=== PATIENT | female | born 1990 | race African-American/Black ===

== ENCOUNTER 2018-01-22 08:11 | Emergency (ER) | payer OTHER ==
[~2018-01-22] VITALS: Ht 167.6 cm; Wt 80.7 kg
[~2018-01-22 08:11] MED LIST: CIPRO250 M1 PO; DOXYCYCLINE 10100 M1 PO; IBUPROFEN 200200 M1 PO; MACROBID 100 M100 M1 PO; PERCOCET 5-3251 EACH PO; TRINATE TABLET1 TAB PO
[2018-01-22 08:33] LABS: URINE BILIRUBIN NEGATIVE (Negative); URINE BLOOD NEGATIVE (Negative); URINE CLARITY CLEAR; URINE COLOR YELLOW; URINE GLUCOSE-RANDOM* NEGATIVE (Negative); URINE KETONES NEGATIVE (Negative); URINE LEUKOCYTES-REFLEX NEGATIVE (Negative); URINE NITRITE-REFLEX NEGATIVE (Negative); URINE PROTEIN (DIPSTICK) NEGATIVE (Negative); URINE SPECIFIC GRAVITY 1.025 (1.005-1.035); URINE UROBILINOGEN 0.2 E.U./dl (0.2-1.0)
[2018-01-22 08:45] LABS: ABSOLUTE NEUTROPHILS 2.9 thou/uL (1.4-8.2); BASOPHILS 0.6 % (0.0-2.0); HEMATOCRIT 42.9 % (37.0-47.0); HEMOGLOBIN 14.2 gm/dL (12.0-15.0); LYMPHOCYTES 34.9 % (24.0-44.0); MCH 26.3 pg (26.0-34.0); MCHC 33.1 g/dL (28.0-37.0); MCV 79.5 fL (80.0-100.0); MONOCYTES 3.8 % (1.0-8.0); PLATELET COUNT 155 thou/uL (150-400); POLYS 59.7 % (36.0-66.0); RDW 13.6 % (10.5-14.5); WBC 4.8 thou/uL (4.0-11.0)
[2018-01-22 08:52] LABS: CALCIUM 9.2 mg/dL (8.5-10.1); POTASSIUM 3.7 mmol/L (3.5-5.1)
[2018-01-22] MEDS ORDERED: BENTYL 10 MG CA10 M1 PO (09:22)
== END 2018-01-22 09:40 | disposition home or self-care (01) ==
LOC: ER 08:11
PROVIDERS: Student in an Organized Health Care Education/Training Program
DX: E73.9 Lactose intolerance, unspecified (principal); R10.30 Lower abdominal pain, unspecified; R19.7 Diarrhea, unspecified; R11.0 Nausea

== ENCOUNTER 2018-06-10 19:10 | Emergency (ER) | payer OTHER ==
[~2018-06-10] VITALS: Ht 167.6 cm; Wt 80.7 kg
[~2018-06-10 19:10] MED LIST changes: +BENTYL 10 MG CA10 M1 PO
[2018-06-10 19:58] LABS: ABSOLUTE NEUTROPHILS 3.1 thou/uL (1.4-8.2); BASOPHILS 0.8 % (0.0-2.0); EOSINOPHILS 1.4 % (0.0-3.0); HEMATOCRIT 38.9 % (37.0-47.0); HEMOGLOBIN 12.7 gm/dL (12.0-15.0); LYMPHOCYTES 36.9 % (24.0-44.0); MCH 25.8 pg (26.0-34.0); MCHC 32.6 g/dL (28.0-37.0); MCV 78.9 fL (80.0-100.0); MONOCYTES 5.8 % (1.0-8.0); PLATELET COUNT 152 thou/uL (150-400); POLYS 55.1 % (36.0-66.0); RBC 4.92 mil/uL (4.20-5.00); RDW 14.4 % (10.5-14.5); WBC 5.5 thou/uL (4.0-11.0)
[2018-06-10 20:06] LABS: CALCIUM 8.1 mg/dL (8.5-10.1); CREATININE 0.9 mg/dL (0.6-1.0); POTASSIUM 3.8 mmol/L (3.5-5.1)
[2018-06-10 20:12] LABS: ALBUMIN 3.7 g/dL (3.4-5.0); TOTAL BILIRUBIN 0.4 mg/dL (<0.1-1.0); TOTAL PROTEIN 7.8 g/dL (6.4-8.2)
[2018-06-10 20:21] LABS: URINE BILIRUBIN NEGATIVE (Negative); URINE BLOOD NEGATIVE (Negative); URINE CLARITY CLEAR; URINE COLOR YELLOW; URINE GLUCOSE-RANDOM* NEGATIVE (Negative); URINE KETONES NEGATIVE (Negative); URINE LEUKOCYTES-REFLEX TRACE (Negative); URINE NITRITE-REFLEX NEGATIVE (Negative); URINE PROTEIN (DIPSTICK) NEGATIVE (Negative); URINE SPECIFIC GRAVITY 1.025 (1.005-1.035)
[2018-06-10] MEDS ORDERED: IBUPROFEN 600600 M1 PO (21:43)
[2018-06-10] MEDS ORDERED: FLAGYL500 M1 PO (21:43)
[2018-06-10 22:16] VITALS: BP 119/73
== END 2018-06-10 22:17 | disposition home or self-care (01) ==
LOC: ER 19:10
PROVIDERS: Physician Assistant
DX: N76.0 Acute vaginitis (principal)

== ENCOUNTER 2018-08-04 20:52 | Emergency (ER) | payer OTHER ==
[~2018-08-04] VITALS: Ht 167.6 cm; Wt 83.9 kg
[~2018-08-04 20:52] MED LIST changes: +FLAGYL500 M1 PO; +IBUPROFEN 600600 M1 PO
[2018-08-04 22:44] LABS: URINE BILIRUBIN NEGATIVE (Negative); URINE BLOOD NEGATIVE (Negative); URINE CLARITY CLEAR; URINE COLOR YELLOW; URINE GLUCOSE-RANDOM* NEGATIVE (Negative); URINE KETONES TRACE (Negative); URINE LEUKOCYTES-REFLEX NEGATIVE (Negative); URINE NITRITE-REFLEX NEGATIVE (Negative); URINE PROTEIN (DIPSTICK) NEGATIVE (Negative)
[2018-08-04] MEDS ORDERED: PRENATA CHEWAB1 EACH PO (23:28)
[2018-08-04 23:33] VITALS: BP 119/84
== END 2018-08-04 23:34 | disposition home or self-care (01) ==
LOC: ER 20:52
PROVIDERS: Student in an Organized Health Care Education/Training Program
DX: O26.891 Other specified pregnancy related conditions, first trimester (principal); M54.5 Low back pain; R11.0 Nausea; Z3A.00 Weeks of gestation of pregnancy not specified

== ENCOUNTER 2018-08-25 19:37 | Emergency (ER) | payer OTHER ==
[~2018-08-25] VITALS: Ht 167.6 cm; Wt 80.7 kg
[~2018-08-25 19:37] MED LIST changes: +PRENATA CHEWAB1 EACH PO
[2018-08-25 20:37] LABS: URINE BILIRUBIN NEGATIVE (Negative); URINE BLOOD NEGATIVE (Negative); URINE CLARITY CLEAR; URINE COLOR YELLOW; URINE GLUCOSE-RANDOM* NEGATIVE (Negative); URINE KETONES NEGATIVE (Negative); URINE NITRITE-REFLEX NEGATIVE (Negative); URINE PROTEIN (DIPSTICK) NEGATIVE (Negative); URINE UROBILINOGEN 0.2 E.U./dl (0.2-1.0)
[2018-08-25 20:38] LABS: URINE LEUKOCYTES-REFLEX 2+ (Negative)
[2018-08-25 20:47] LABS: BACTERIA-REFLEX 1-9 Few /HPF (None Seen); CASTS None Seen /LPF (None Seen); CRYSTALS None Seen /LPF (None Seen); SQUAMOUS >10 Many /LPF (0-3); URINE RBC None Seen /HPF (0-2); URINE WBC-REFLEX 6-15 Few /HPF (0-5)
[2018-08-25 21:24] LABS: ABSOLUTE NEUTROPHILS 3.9 thou/uL (1.4-8.2); EOSINOPHILS 0.9 % (0.0-3.0); HEMATOCRIT 36.9 % (37.0-47.0); LYMPHOCYTES 28.5 % (24.0-44.0); MCH 25.5 pg (26.0-34.0); MCHC 32.6 g/dL (28.0-37.0); MCV 78.4 fL (80.0-100.0); MONOCYTES 6.6 % (1.0-8.0); PLATELET COUNT 135 thou/uL (150-400); RDW 14.6 % (10.5-14.5); WBC 6.2 thou/uL (4.0-11.0)
[2018-08-25 21:33] LABS: CREATININE 0.7 mg/dL (0.6-1.0); POTASSIUM 3.8 mmol/L (3.5-5.1)
[2018-08-25] MEDS ORDERED: KEFLEX500 M1 PO (22:06)
[2018-08-25 22:15] VITALS: BP 107/74
== END 2018-08-25 22:27 | disposition home or self-care (01) ==
LOC: ER 19:37
PROVIDERS: Physician Assistant
DX: O26.891 Other specified pregnancy related conditions, first trimester (principal); R82.71 Bacteriuria; R10.2 Pelvic and perineal pain; Z3A.09 9 weeks gestation of pregnancy

== ENCOUNTER 2019-01-27 16:16 | Emergency (ER) | payer OTHER ==
[~2019-01-27] VITALS: Ht 167.6 cm; Wt 59.0 kg
[~2019-01-27 16:16] MED LIST changes: +KEFLEX500 M1 PO
[2019-01-27 16:17] VITALS: BP 120/82
[2019-01-27 16:34] LABS: URINE BILIRUBIN NEGATIVE (Negative); URINE BLOOD NEGATIVE (Negative); URINE CLARITY CLEAR; URINE COLOR YELLOW; URINE GLUCOSE-RANDOM* NEGATIVE (Negative); URINE KETONES NEGATIVE (Negative); URINE LEUKOCYTES-REFLEX NEGATIVE (Negative); URINE NITRITE-REFLEX NEGATIVE (Negative); URINE PROTEIN (DIPSTICK) NEGATIVE (Negative); URINE SPECIFIC GRAVITY 1.025 (1.005-1.035); URINE UROBILINOGEN 0.2 E.U./dl (0.2-1.0)
[2019-01-27] MEDS ORDERED: METRONIDAZOLE500 M4 PO (17:41)
[2019-01-27] MEDS ORDERED: DIFLUCAN150 M1 PO (17:47)
== END 2019-01-27 17:30 | disposition home or self-care (01) ==
LOC: ER 16:16
PROVIDERS: Physician Assistant
DX: N76.0 Acute vaginitis (principal)

== ENCOUNTER 2019-06-16 20:57 | Emergency (ER) | payer OTHER ==
[~2019-06-16] VITALS: Ht 167.6 cm; Wt 82.6 kg
[~2019-06-16 20:57] MED LIST changes: +DIFLUCAN150 M1 PO; +METRONIDAZOLE500 M4 PO
[2019-06-16] MEDS ORDERED: METRONIDAZOLE500 M4 PO (22:37)
[2019-06-16 22:48] VITALS: BP 118/73
== END 2019-06-16 22:45 | disposition home or self-care (01) ==
LOC: ER 20:57
DX: N76.0 Acute vaginitis (principal); B96.89 Other specified bacterial agents as the cause of diseases classified elsewhere